=== PATIENT | female | born 1985 | race Caucasian/White ===

== ENCOUNTER 2017-03-08 14:28 | Emergency (ER) | payer MEDICAID ==
[2017-03-08 14:34] VITALS: BP 138/93; PULSE 100; RESP 16; TEMP 99.5; O2SAT 98
[2017-03-08 14:42] LABS: COLOR YELLOW; LEUKOCYTE ESTERASE,URINE TRACE (NEGATIVE); NITRITE,URINE NEGATIVE (NEGATIVE); PH,URINE 7.5 (5.0-7.5)
[2017-03-08 14:52] LABS: BACTERIA TRACE /hpf (NONE SEEN); MUCUS 2+ /lpf (NONE-1+)
[2017-03-08 14:53] LABS: AMORPHOUS 1+ /hpf (NONE-1+); WBC,URINE 25-50 /hpf (0-3)
--- NOTE | 2017-03-08 14:53 | EDPHY ---
H & P Stated Complaint: FREQUENCY, DYSURIA Time Seen by Provider: 03/08/17 14:52 - Personal History LMP (Females 10-55): 15-21 Days Ago Current Tetanus Diphtheria and Acellular Pertussis (TDAP): Yes Tetanus Vaccine Date: within 10 yrs - Medical/Surgical History Hx Asthma: No Hx Chronic Respiratory Disease: No Hx Diabetes: No Hx Cardiac Disease: No Hx Renal Disease: No Hx Cirrhosis: No Hx Alcoholism: No Hx HIV/AIDS: No Hx Splenectomy or Spleen Trauma: No Other PMH: cholecystectomy - Social History Smoking Status: Never smoked Constitutional: Initial Vital Signs Temperature (C) 37.5 C 03/08/17 14:29 Heart Rate 100 03/08/17 14:29 Respiratory Rate 16 03/08/17 14:29 Blood Pressure 138/93 H 03/08/17 14:29 O2 Sat (%) 98 03/08/17 14:29 O2 Delivery Mode Room Air Allergies/Adverse Reactions: No Known Allergies Allergy (Verified 03/08/17 14:34) Home Medications: Medication Instructions Recorded Cephalexin [Keflex (RX)] 500 mg PO TID #30 cap 03/08/17 Phenazopyridine HCl [Pyridium] 200 mg PO TID #6 tablet 03/08/17 Medical Decision Making ED Course/Re-evaluation: CHIEF COMPLAINT: Frequent painful urination HISTORY OF PRESENT ILLNESS: This patient is a 31 year old female complaining of frequent, painful urination onset four days ago. She reports she has had frequent episodes of small amounts of urine. She reports her symptoms are similar to previous urinary tract infections. She states her back has begun hurting as well. She denies nausea, vomiting, fever, chills or other associated symptoms. REVIEW OF SYSTEMS: A 10 point review of systems was performed and is negative with the exception of the elements mentioned in the history of present illness. PHYSICAL EXAM: HR, BP, O2 Sat, RR. Temp noted General Appearance: Alert, well hydrated, appropriate, and non-toxic appearing. Head: Atraumatic without scalp tenderness or obvious injury Eyes: Pupils equal, round, reactive to light and accommodation, EOMI, no trauma , no injection. Ears: Clear bilaterally, no perforation, normal landmarks Nose: Atraumatic, no rhinorrhea, clear. Throat: There is no erythema or exudates, no lesions, normal tonsils, mucus membranes moist. Neck: Supple, nontender, no lymphadenopathy. Respiratory: No retractions, no distress, no wheezes, and no accessory muscle use. Lungs are clear to auscultation bilaterally. Cardiovascular: Regular rate and rhythm, no murmurs, rubs, or gallops. Good capillary refill all extremities. Gastrointestinal: Abdomen is soft, nontender, non-distended, no masses, no rebound, no guarding, no peritoneal signs. Genitourinary: Tenderness over bladder. Musculoskeletal: Left CVA tenderness. Normal active ROM of all extremities, atraumatic. Neurological: Alert, appropriate, and interactive. Normal neuro exam. Skin: No rashes, good turgor, no nodules on palpation. Past medical/surgical history: Cholecystectomy Family history: Noncontributory Social history: Daughter at bedside. DIFFERENTIAL DIAGNOSIS: The differential diagnosis for the patient's abdominal pain included but was not limited to pyelonephritis, urinary tract infection, ovarian cyst, pelvic inflammatory disease, ovarian torsion,ectopic , cholecystitis, and appendicitis. MEDICAL DECISION MAKING: This patient is a 31 year old female presenting with a four day history of dysuria. Physical exam reveals tenderness over the bladder and left CVA tenderness. UA was positive for signs of infection. I suspect urinary tract infection and uncomplicated pyelonephritis. She will be discharged home in good condition with Keflex 500mg to resolve infection and Pyridium 200mg to relieve symptoms. Return precautions discussed. The patient is comfortable with this plan. - Data Points Laboratory Results: 03/08/17 13:40 Urine Color YELLOW Urine Appearance HAZY Urine pH 7.5 (5.0-7.5) Ur Specific [place] 1.015 (1.002-1.030) Urine Protein 1+ H (NEGATIVE) Urine Ketones TRACE H (NEGATIVE) Urine Blood NEGATIVE (NEGATIVE) Urine Nitrate NEGATIVE (NEGATIVE) Urine Bilirubin NEGATIVE (NEGATIVE) Urine Urobilinogen 0.2 EU EU (0.2-1.0) Ur Leukocyte Esterase TRACE H (NEGATIVE) Urine RBC 3-5 /hpf H /hpf (0-3) Urine WBC 25-50 /hpf H /hpf (0-3) Ur Epithelial Cells 2+ /lpf H /lpf (NONE-1+) Amorphous Sediment 1+ /hpf /hpf (NONE-1+) Urine Bacteria TRACE /hpf H /hpf (NONE SEEN) Urine Mucus 2+ /lpf H /lpf (NONE-1+) Urine Glucose NEGATIVE (NEGATIVE) Departure - Departure Disposition: Home, Routine, Self-Care Clinical Impression: Pyelonephritis Condition: Good Instructions: Urinary Tract Infection in Women (ED) Additional Instructions: 1. Take your Keflex as prescribed. It is important that you finish your entire course of antibiotics. 2. Take your Pyridium as prescribed for your urgency and frequency. 3. Follow up with your primary care physician for symptoms unresolved in the next few days. 4. Return to the Emergency Department if you experience nausea, vomiting, fever , chills, or other worsening of condition. Referrals: CRISTINA SHAVER,. [Primary Care Provider] - As per Instructions Prescriptions: Cephalexin [Keflex (RX)] 500 mg PO TID #30 cap Phenazopyridine HCl [Pyridium] 200 mg PO TID #6 tablet Report Scribed for: Jatin Sauceda Report Scribed by: Nelly Beltran Date of Report: 03/08/17 Time of Report: 14:57
[2017-03-08] MEDS ORDERED: CEPHALEXIN 500 MG CAP PO ONE (14:59)
[2017-03-08] MEDS ORDERED: PHENAZOPYRIDINE HCL 200 MG TAB PO ONE (14:59)
== END 2017-03-08 15:09 | disposition home or self-care (01) ==
LOC: CED 14:28
DX: N12 Tubulo-interstitial nephritis, not specified as acute or chronic (principal)
CPT/HCPCS: 81003-PO; 81015-PO

== ENCOUNTER 2017-03-13 15:57 | Emergency (ER) | payer MEDICAID ==
[2017-03-13 16:26] VITALS: RESP 18; TEMP 99
[2017-03-13 16:34] LABS: COLOR YELLOW; LEUKOCYTE ESTERASE,URINE NEGATIVE (NEGATIVE); NITRITE,URINE NEGATIVE (NEGATIVE)
[2017-03-13 16:49] LABS: RBC,URINE NONE SEEN /hpf (0-3); WBC,URINE NONE SEEN /hpf (0-3)
[2017-03-13] MEDS ORDERED: NS 1,000 ML IV ONE (17:16)
[2017-03-13] MEDS ORDERED: ONDANSETRON 4 MG/2 ML VIAL IVP ONE (17:16)
[2017-03-13 17:38] LABS: % IMMATURE GRANULYOCYTES 0.3 % (0.0-1.1); ABSOLUTE IMMATURE GRANULOCYTES 0.02 10^3/uL (0.00-0.10); ADD DIFF? NO; ADD MORPH? NO; ADD SCAN? NO; ATYPICAL LYMPHOCYTE FLAG 20 (0-99); FRAGMENT RBC FLAG 0 (0-99); HEMATOCRIT 35.5 % (38.0-47.0); HEMOGLOBIN 11.8 g/dL (12.6-16.3); LEFT SHIFT FLG 0 (0-99); LIPEMIA HEMOLYSIS FLAG 80 (0-99); MEAN CELL HEMOGLOBIN 29.1 pg (27.9-34.1); MEAN CELL HEMOGLOBIN CONCENTR. 33.2 g/dL (32.4-36.7); MEAN CELL VOLUME 87.4 fL (81.5-99.8); MEAN PLATELET VOLUME 10.6 fL (8.7-11.7); PLATELET CLUMPS FLAG 0 (0-99); PLATELET COUNT 270 10^3/uL (150-400); RED BLOOD CELL COUNT 4.06 10^6/uL (4.18-5.33); RED CELL DISTRIBUTION WIDTH 13.5 % (11.5-15.2)
[2017-03-13 17:51] LABS: ANION GAP 14 mEq/L (8-16); CALCIUM 8.7 mg/dL (8.5-10.4); CARBON DIOXIDE 20 mEq/l (22-31); CHLORIDE 104 mEq/L (97-110); CREATININE 0.4 mg/dL (0.6-1.0); GLOMERULAR FILTRATION RATE > 60; GLUCOSE 91 mg/dL (70-100); POTASSIUM 4.1 mEq/L (3.5-5.2); SODIUM 138 mEq/L (134-144)
--- NOTE | 2017-03-13 18:25 | EDPHY ---
H & P Stated Complaint: Lower back pain Time Seen by Provider: 03/13/17 16:08 HPI/ROS: This patient presented 8 days ago with urinary frequency and dysuria to the emergency department. 24 hours after the onset of those urinary symptoms she developed some left lumbar pain versus CVA pain in addition. She took Tylenol last night with partial relief of her symptoms by reports worsening back pain left lumbar location today and tips putting. She has tolerated p.o. fluids since the vomiting the as nausea Alexander is not been tolerating p.o. food due to concern of potential triggering of further emesis. She has not had this type of back pain before she describes as a combination of achy and throbbing in nature. The pain does worsen with movement. It does not radiate. She does have some ongoing nausea currently. She reports the severity of the pain at times is 9/10 but currently moderate in severity. ROS: No fevers or chills. No other constitutional symptoms. HEENT: No complaints Pulmonary: No cough shortness of breath chest pain Cardiovascular: No lightheadedness. No chest pain GI: No belly pain. No hematemesis. Normal bowel movements : Last menstrual period was a month ago-normal timing. No vaginal discharge. She reports that her dysuria has resolved. She does have some mild frequency still. Integumentary: No skin rash Neuro: No focal numbness tingling or weakness. No sciatic symptoms. No bowel or bladder incontinence. 10 point ROS is otherwise negative Source: Patient Exam Limitations: No limitations - Personal History LMP (Females 10-55): Now Current Tetanus/Diphtheria Vaccine: Yes Current Tetanus Diphtheria and Acellular Pertussis (TDAP): Yes Tetanus Vaccine Date: within 10 yrs - Medical/Surgical History PMH: Occasional sciatic symptoms on the right side. Again recent UTI diagnosed compliant with her Keflex antibiotic. Hx Asthma: No Hx Chronic Respiratory Disease: No Hx Diabetes: No Hx Cardiac Disease: No Hx Renal Disease: No Hx Cirrhosis: No Hx Alcoholism: No Hx HIV/AIDS: No Hx Splenectomy or Spleen Trauma: No Other PMH: cholecystectomy - Family History Significant Family History: No pertinent family hx - Social History Smoking Status: Never smoked Alcohol Use: Occasionally Drug Use: None Additional Social History: The patient works as a SALES SERVICE ASSISTANT. - Physical Exam Exam: General Appearance: Alert, no distress. Eyes: Pupils equal and round no pallor or injection. ENT, Mouth: Mucous membranes moist. Respiratory: There are no retractions, lungs are clear to auscultation. Cardiovascular: Regular rate and rhythm. Gastrointestinal: Abdomen is soft with minimal suprapubic tenderness, no masses , bowel sounds normal. Back: No midline tenderness. Straight leg raise is negative bilaterally. She does have increase in pain with lateral flexion away from the affected side. She is able to bend forward but does have mild increase in pain in the left lumbar area with this maneuver. If entirely clear clinically this patient has CVA tenderness versus muscular tenderness. No muscle spasms appreciated. Neurological: GCS 15. No light touch sensory deficits or lower extremities. No saddle anesthesia. She maintains 5/5 strength in great toe dorsiflexion plantar flexion bilaterally. She maintains 2+ symmetric patellar and Achilles DTRs bilaterally. Skin: Warm and dry, no rashes. Musculoskeletal: Neck is supple nontender. Extremities are symmetrical, full range of motion. Psychiatric: Mood and affect are normal DIFFERENTIAL DIAGNOSIS: After history and physical exam differential diagnosis was considered for low back strain, ureteral stone could complicating UTI, pyelonephritis, , ectopic Constitutional: Initial Vital Signs Temperature (C) 37.2 C 03/13/17 16:23 Heart Rate 99 03/13/17 16:23 Respiratory Rate 18 03/13/17 16:23 Blood Pressure 131/77 H 03/13/17 16:23 O2 Sat (%) 96 03/13/17 16:23 O2 Delivery Mode Room Air Allergies/Adverse Reactions: No Known Allergies Allergy (Verified 03/13/17 16:27) Home Medications: Medication Instructions Recorded Cephalexin [Keflex (RX)] 500 mg PO TID #30 cap 03/08/17 Phenazopyridine HCl [Pyridium] 200 mg PO TID #6 tablet 03/08/17 Methocarbamol [Robaxin 750 mg (*)] 750 - 1,500 mg PO QID PRN #30 tab 03/13/17 traMADol [Ultram 50 mg (*)] 50 - 100 mg PO Q4 PRN #15 tab 03/13/17 Medical Decision Making ED Course/Re-evaluation: IV Zofran with resolution of nausea Normal saline bolus Patient's urinalysis reveals only minimal hematuria. Urine unable to be done due to the dilute nature of the urine Serum is negative CBC unremarkable, chemistries normal I discussed the patient's symptoms with her in some detail in her findings her she is a SALES SERVICE ASSISTANT and has some interest in medical matters. We discussed the possibility of imaging but we both feel that her symptoms are more likely musculoskeletal in origin in terms of her worsening back pain. Will plan to treat her with methocarbamol, NSAIDs and appropriate back care measures. She understands the need to return for imaging and further workup if she has any worsening of her symptoms despite the treatment plan. - Data Points Laboratory Results: Laboratory Results 03/13/17 17:30 03/13/17 17:30 03/13/17 03/13/17 03/13/17 17:30 17:30 17:30 WBC 7.35 10^3/uL 10^3/uL (3.80-9.50) RBC 4.06 10^6/uL L 10^6/uL (4.18-5.33) Hgb 11.8 g/dL L g/dL (12.6-16.3) Hct 35.5 % L % (38.0-47.0) MCV 87.4 fL fL (81.5-99.8) MCH 29.1 pg pg (27.9-34.1) MCHC 33.2 g/dL g/dL (32.4-36.7) RDW 13.5 % % (11.5-15.2) Plt Count 270 10^3/uL 10^3/uL (150-400) MPV 10.6 fL fL (8.7-11.7) Neut % (Auto) 71.6 % % (39.3-74.2) Lymph % (Auto) 19.0 % % (15.0-45.0) [place] % (Auto) 8.6 % % (4.5-13.0) Eos % (Auto) 0.4 % L % (0.6-7.6) Baso % (Auto) 0.1 % L % (0.3-1.7) Nucleat RBC Rel Count 0.0 % % (0.0-0.2) Absolute Neuts (auto) 5.26 10^3/uL 10^3/uL (1.70-6.50) Absolute Lymphs (auto) 1.40 10^3/uL 10^3/uL (1.00-3.00) Absolute Monos (auto) 0.63 10^3/uL 10^3/uL (0.30-0.80) Absolute Eos (auto) 0.03 10^3/uL 10^3/uL (0.03-0.40) Absolute Basos (auto) 0.01 10^3/uL L 10^3/uL (0.02-0.10) Absolute Nucleated RBC 0.00 10^3/uL 10^3/uL (0-0.01) Immature Gran % 0.3 % % (0.0-1.1) Immature Gran # 0.02 10^3/uL 10^3/uL (0.00-0.10) Sodium 138 mEq/L mEq/L (134-144) Potassium 4.1 mEq/L mEq/L (3.5-5.2) Chloride 104 mEq/L mEq/L (97-110) Carbon Dioxide 20 mEq/l L mEq/l (22-31) Anion Gap 14 mEq/L mEq/L (8-16) BUN 8 mg/dL mg/dL (7-23) Creatinine 0.4 mg/dL L mg/dL (0.6-1.0) Estimated GFR > 60 Glucose 91 mg/dL mg/dL (70-100) Calcium 8.7 mg/dL mg/dL (8.5-10.4) Beta HCG, Qual NEGATIVE Urine Color Urine Appearance Urine pH Ur Specific [place] Urine Protein Urine Ketones Urine Blood Urine Nitrate Urine Bilirubin Urine Urobilinogen Ur Leukocyte Esterase Urine RBC Urine WBC Ur Epithelial Cells Urine Glucose 03/13/17 16:25 WBC RBC Hgb Hct MCV MCH MCHC RDW Plt Count MPV Neut % (Auto) Lymph % (Auto) [place] % (Auto) Eos % (Auto) Baso % (Auto) Nucleat RBC Rel Count Absolute Neuts (auto) Absolute Lymphs (auto) Absolute Monos (auto) Absolute Eos (auto) Absolute Basos (auto) Absolute Nucleated RBC Immature Gran % Immature Gran # Sodium Potassium Chloride Carbon Dioxide Anion Gap BUN Creatinine Estimated GFR Glucose Calcium Beta HCG, Qual Urine Color YELLOW Urine Appearance CLEAR Urine pH 6.0 (5.0-7.5) Ur Specific [place] <= 1.005 (1.002-1.030) Urine Protein NEGATIVE (NEGATIVE) Urine Ketones NEGATIVE (NEGATIVE) Urine Blood 2+ H (NEGATIVE) Urine Nitrate NEGATIVE (NEGATIVE) Urine Bilirubin NEGATIVE (NEGATIVE) Urine Urobilinogen 0.2 EU EU (0.2-1.0) Ur Leukocyte Esterase NEGATIVE (NEGATIVE) Urine RBC NONE SEEN /hpf /hpf (0-3) Urine WBC NONE SEEN /hpf /hpf (0-3) Ur Epithelial Cells 1+ /lpf /lpf (NONE-1+) Urine Glucose NEGATIVE (NEGATIVE) Medications Given: Discontinued Medications Sodium Chloride (Ns) 1,000 mls @ 0 mls/hr IV ONCE ONE; Wide Open PRN Reason: Protocol Stop: 03/13/17 17:17 Last Admin: 03/13/17 17:34 Dose: 1,000 mls Ondansetron HCl (Zofran) 4 mg IVP EDNOW ONE Stop: 03/13/17 17:17 Last Admin: 03/13/17 17:39 Dose: 4 mg Departure - Departure Disposition: Home, Routine, Self-Care Clinical Impression: Low back pain Qualifiers: Chronicity: acute Back pain laterality: left Sciatica presence: without sciatica Qualified Code(s): M54.5 - Low back pain Condition: Good Instructions: Acute Nausea and Vomiting (ED), Acute Low Back Pain (ED) Additional Instructions: Diagnosis: 1. Low back pain 2. Vomiting It seems that your low back pain is musculoskeletal at this point. Cannot entirely rule out kidney stone associated with UTI but I think this is unlikely as per our discussion. Plan: Ibuprofen 400-600 mg per 6 hours regularly for the next week then as needed. Methocarbamol muscle relaxants as needed. Tramadol or Tylenol as needed for pain. No driving alcohol or work on Tramadol. Starts daily stretches prior to taking muscle relaxants and Vicodin in the morning. 3-5 minutes each of: "Butterfly stretch," "Sphinx stretch", "pigeon stretch", and hamstring stretch. Avoid lifting more than 5-10 pounds until symptoms improve. Call your primary care physician for a followup appointment in 3-7 days. Go to the emergency department for worsening of your symptoms despite the treatment plan. Referrals: CRISTINA SHAVER,. [Primary Care Provider] - As per Instructions Stand Alone Forms: Work Excuse Prescriptions: Methocarbamol [Robaxin 750 mg (*)] 750 - 1,500 mg PO QID PRN #30 tab PRN Reason: Muscle Spasms traMADol [Ultram 50 mg (*)] 50 - 100 mg PO Q4 PRN #15 tab PRN Reason: Pain, Breakthrough
[2017-03-13 18:43] VITALS: BP 135/72; PULSE 85; O2SAT 97
== END 2017-03-13 18:40 | disposition home or self-care (01) ==
LOC: CED 15:57
DX: M54.5 Low back pain (principal)
CPT/HCPCS: 80048-PO; 81003-PO; 81015-PO; 84703-PO; 85025-PO; 96374; J2405

== ENCOUNTER 2018-02-10 17:10 | Emergency (ER) | payer MEDICAID ==
[2018-02-10] MEDS ORDERED: ASPIRIN 81 MG CHEWABLE TAB PO ONE (17:20)
--- NOTE | 2018-02-10 17:26 | CPEKG ---
Heart Rate: 76 RR Interval: 789 P-R Interval: 128 QRSD Interval: 72 QT Interval: 364 QTC Interval: 410 P [place]: 8 QRS [place]: 39 T Wave [place]: 37 EKG Severity - NORMAL ECG - EKG Impression: SINUS RHYTHM Electronically Signed By: Reynaldo Monroe 10-Feb-2018 17:27:18
[2018-02-10 17:44] LABS: PLATELET COUNT 236 10^3/uL (150-400)
[2018-02-10] MEDS ORDERED: KETOROLAC 15 MG/1 ML SDV IVP ONE (17:47)
[2018-02-10] MEDS ORDERED: MAG HYDROX/AL HYDROX/SIMETH 30 ML UDCUP PO ONE (18:29)
[2018-02-10] MEDS ORDERED: HYOSCYAMINE SULFATE 0.125 MG TAB PO ONE (18:29)
--- NOTE | 2018-02-10 18:56 | EDPHY ---
H & P Stated Complaint: cp x 3 days . hard to take a full breath . Denies SOB. Denies N/V. Time Seen by Provider: 02/10/18 17:24 HPI/ROS: This patient complains of chest pain for 3 days gradual in onset. She describes the location as substernal pressure in sensation with occasional intermittent sharp pains. At times it feels that there is some radiation to the right shoulder. She had the impression that the cause of this pain that has been constant for 3 days was acid reflux but she did not appreciate significant improvement from [id number] antacids. Peak intensity 7/10 currently 6/10. She notes no clear exacerbating or alleviating factors. There is no worsening with exertion. She did notice any change with eating. She has associated sensation of slight dyspnea as well but she has states to call at any shortness of breath. She drove herself here by private vehicle for further evaluation of her symptoms due to her 's urging that she have the symptoms evaluated. ROS: No fevers or chills. No other constitutional symptoms including no fatigue. HEENT: No URI symptoms recently. Pulmonary: No cough. No pleuritic pain. No respiratory distress. No wheezing. Cardiovascular: She reports a times feeling fleeting lightheadedness but none currently in this does not seem to be positional. No palpitations. No lower extremity swelling. She does report intermittent right leg ache over the past week but reports this is minimal. GI: No abdominal pain. No nausea or vomiting. Integumentary: No diaphoresis. Neuro: No focal symptoms Complete review of symptoms is otherwise negative. Source: Patient Exam Limitations: No limitations - Personal History LMP (Females 10-55): 15-21 Days Ago Current Tetanus Diphtheria and Acellular Pertussis (TDAP): Yes Tetanus Vaccine Date: within 10 yrs - Medical/Surgical History Hx Asthma: No Hx Chronic Respiratory Disease: No Hx Diabetes: No Hx Cardiac Disease: No Hx Renal Disease: No Hx Cirrhosis: No Hx Alcoholism: No Hx HIV/AIDS: No Hx Splenectomy or Spleen Trauma: No Other PMH: cholecystectomy - Family History Significant Family History: No pertinent family hx, Other (No family history of DVT or PE). 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 Eyes: Pupils equal and round no pallor or injection. ENT, Mouth: Mucous membranes moist. Respiratory: There are no retractions, lungs are clear to auscultation. Cardiovascular: Regular rate and rhythm. No murmur gallop or rub. No JVD. 2 + radialis pulses are symmetric bilaterally. No lower extremity edema. Homans is negative in the right calf there is no calf swelling or tenderness to palpation. Chest wall: Patient does have mild chest wall tenderness but she feels the source of the pain is deeper in location and that palpation of the chest is not entirely reproduces her symptoms. Gastrointestinal: Abdomen is soft and nontender, no masses, bowel sounds normal. Neurological: GCS 15 without focal deficits. Skin: Warm and dry, no rashes. Musculoskeletal: Neck is supple nontender. Extremities are symmetrical, full range of motion. Psychiatric: Mood and affect are normal DIFFERENTIAL DIAGNOSIS: After history and physical exam differential diagnosis was considered for musculoskeletal chest pain, GERD with esophageal spasm, myocardial ischemic disease, pulmonary embolism, pneumothorax, pneumonia. Constitutional: Initial Vital Signs Temperature (C) 36.9 C 02/10/18 17:14 Heart Rate 80 02/10/18 17:14 Respiratory Rate 16 02/10/18 17:14 Blood Pressure 130/84 H 02/10/18 17:14 O2 Sat (%) 96 02/10/18 17:14 O2 Delivery Mode Room Air Allergies/Adverse Reactions: No Known Allergies Allergy (Verified 03/13/17 16:27) Home Medications: Medication Instructions Recorded Cephalexin [Keflex (RX)] 500 mg PO TID #30 cap 03/08/17 Phenazopyridine HCl [Pyridium] 200 mg PO TID #6 tablet 03/08/17 Methocarbamol [Robaxin 750 mg (*)] 750 - 1,500 mg PO QID PRN #30 tab 03/13/17 traMADol [Ultram 50 mg (*)] 50 - 100 mg PO Q4 PRN #15 tab 03/13/17 Hyoscyamine Sulfate [Levsin, 0.125 - 0.25 mg SL Q6 PRN #20 tab 02/10/18 Hyomax-Sl 0.125 mg (*)] Pantoprazole Sodium [Protonix 40mg 40 mg PO DAILY #14 tab 02/10/18 (*)] Medical Decision Making - Diagnostics EKG Interpretation: 12 lead EKG performed at 5:24 p.m. reveals sinus rhythm at 76 Intervals: Normal throughout [place]: Normal throughout ST segments: Normal throughout Overall assessment normal EKG Imaging Results: Imaging Impressions Chest X-Ray 02/10/18 17:56 Impression: No acute pulmonary disease. PA and lateral chest x-ray S: Normal by my interpretation Imaging: I viewed and interpreted images myself ED Course/Re-evaluation: Aspirin 324 chewed, IV, monitor Studies: CBC reveals mild anemia with a hematocrit of 33 with similar findings on previous CBC. No leukocytosis. Platelets normal Metabolic panel is normal. D-dimer is normal. Troponin is normal. Toradol IV without significant change in her discomfort This was followed by Levsin sublingual and Maalox p.o. With mild improvement down to 3/10 discomfort Discussion: Given this patient's lack of coronary risk factors or PE risk factors with negative D-dimer, normal EKG normal troponin, and not think she has active cardiopulmonary cause of her chest pain. While she has some tenderness on examination of the chest wall she did not feel significant improvement from Toradol alone. Given improvement with Levsin Maalox I feel it is likely this patient has GERD with esophageal spasm. However she understands that in this initial workup we cannot rule out other potential causes of chest pain. She understands need to return emergency department should she develop any worsening of symptoms despite treatment plan of Protonix Maalox and Levsin with follow up with primary care physician and Gastroenterology for any ongoing symptoms. - Data Points Laboratory Results: Laboratory Results 02/10/18 17:25 02/10/18 17:35 02/10/18 02/10/18 02/10/18 17:35 17:35 17:25 WBC 7.37 10^3/uL 10^3/uL (3.80-9.50) RBC 3.94 10^6/uL L 10^6/uL (4.18-5.33) Hgb 10.5 g/dL L g/dL (12.6-16.3) Hct 33.3 % L % (38.0-47.0) MCV 84.5 fL fL (81.5-99.8) MCH 26.6 pg L pg (27.9-34.1) MCHC 31.5 g/dL L g/dL (32.4-36.7) RDW 14.1 % % (11.5-15.2) Plt Count 236 10^3/uL 10^3/uL (150-400) MPV 10.5 fL fL (8.7-11.7) Neut % (Auto) 63.0 % % (39.3-74.2) Lymph % (Auto) 23.9 % % (15.0-45.0) Cocke % (Auto) 11.8 % % (4.5-13.0) Eos % (Auto) 1.2 % % (0.6-7.6) Baso % (Auto) 0.0 % L % (0.3-1.7) Nucleat RBC Rel Count 0.0 % % (0.0-0.2) Absolute Neuts (auto) 4.64 10^3/uL 10^3/uL (1.70-6.50) Absolute Lymphs (auto) 1.76 10^3/uL 10^3/uL (1.00-3.00) Absolute Monos (auto) 0.87 10^3/uL H 10^3/uL (0.30-0.80) Absolute Eos (auto) 0.09 10^3/uL 10^3/uL (0.03-0.40) Absolute Basos (auto) 0.00 10^3/uL L 10^3/uL (0.02-0.10) Absolute Nucleated RBC 0.00 10^3/uL 10^3/uL (0-0.01) Immature Gran % 0.1 % % (0.0-1.1) Immature Gran # 0.01 10^3/uL 10^3/uL (0.00-0.10) D-Dimer < 0.27 ug/mLFEU ug/mLFEU (0.00-0.50) Sodium 135 mEq/L mEq/L (135-145) Potassium 4.0 mEq/L mEq/L (3.5-5.2) Chloride 104 mEq/L mEq/L (97-110) Carbon Dioxide 23 mEq/l mEq/l (22-31) Anion Gap 8 mEq/L mEq/L (8-16) BUN 12 mg/dL mg/dL (7-23) Creatinine 0.6 mg/dL mg/dL (0.6-1.0) Estimated GFR > 60 Glucose 101 mg/dL H mg/dL (70-100) Calcium 9.2 mg/dL mg/dL (8.5-10.4) Troponin I < 0.012 ng/mL ng/mL (0.000-0.034) Medications Given: Discontinued Medications Al Hydroxide/Mg Hydroxide (Maalox Susp) 30 ml PO EDNOW ONE Stop: 02/10/18 18:30 Last Admin: 02/10/18 18:46 Dose: 30 ml Aspirin (Aspirin) 324 mg PO EDNOW ONE Stop: 02/10/18 17:21 Last Admin: 02/10/18 17:27 Dose: 324 mg Hyoscyamine Sulfate (Levsin, Hyomax-Sl) 0.125 mg PO EDNOW ONE Stop: 02/10/18 18:30 Last Admin: 02/10/18 18:45 Dose: 0.125 mg Ketorolac Tromethamine (Toradol) 15 mg IVP EDNOW ONE Stop: 02/10/18 17:48 Last Admin: 02/10/18 18:09 Dose: 15 mg Departure - Departure Disposition: Home, Routine, Self-Care Clinical Impression: Chest pain Qualifiers: Chest pain type: unspecified Qualified Code(s): R07.9 - Chest pain, unspecified Condition: Good Instructions: Chest Pain (ED), Diet for Stomach Ulcers and Gastritis (ED), Esophageal Spasm (ED) Additional Instructions: Diagnosis: Chest pain Your EKG and labs are normal tonight. No evidence of blood clot or acute heart problem. You may have esophageal reflux with esophageal spasm. Plan: [facility] diet Start Protonix acid jf Levsin medicine for the official spasm if needed Follow up with primary care physician for recheck 5-10 days for any ongoing symptoms Return emergency department for any significant worsening despite treatment plan Also, for any ongoing symptoms despite treatment plan, consider follow-up with a marine service manager listed below. Referrals: Tiffany Fraser NP [Primary Care Provider] - As per Instructions Ethan Wills MD [Medical Doctor] - As per Instructions Prescriptions: Hyoscyamine Sulfate [Levsin, Hyomax-Sl 0.125 mg (*)] 0.125 - 0.25 mg SL Q6 PRN # 20 tab PRN Reason: esophageal cramping/spasm Pantoprazole Sodium [Protonix 40mg (*)] 40 mg PO DAILY #14 tab
[2018-02-10 19:19] VITALS: BP 113/77
== END 2018-02-10 19:19 | disposition home or self-care (01) ==
LOC: CED 17:10
DX: R07.9 Chest pain, unspecified (principal)
CPT/HCPCS: 71046-PO; 80048-PO; 84484-PO; 85025-PO; 85378-PO; 96374; J1885